=== PATIENT | male | born 1970 | race Caucasian/White ===

== ENCOUNTER 2023-10-21 15:30 | Emergency (ER) | payer BC ==
[~2023-10-21 15:30] MED LIST: Iopamidol 300 61% 100 ML VIAL FS ONE
[2023-10-21] MEDS ORDERED: Morphine 4 MG/ML VIAL ONE (16:25)
[2023-10-21] MEDS ORDERED: Ondansetron PF 4 MG/2 ML Vial ONE ×2 (16:25→17:37)
[2023-10-21 16:32] LABS: #Basophils 0.02 10x3/uL (0.0-0.2); #Eosinphils 0.18 10x3/uL (0.0-0.5); #Neutrophils 5.89 10x3/uL (1.5-8.4); %Basophils 0.3 % (0.0-2.0); %Eosinophils 2.7 % (0.0-6.0); %Monocytes 4.4 % (0.0-10.0); %Neutrophils 87.2 % (40.0-75.0); Mean Corpuscular HGB CONC 34.4 g/dL (32.0-36.0); Mean Corpuscular Hemoglobin 33.8 pg (27.0-33.0); Mean Corpuscular Volume 98.5 fL (81.2-95.1); Mean Platelet Volume 10.4 fL (7.4-10.4); Platelet Count 188 10x3/uL (150-450); Red Blood Cell (RBC) Count 3.25 10x6/uL (4.32-5.72); White Blood Cell (WBC) Count 6.8 10x3/uL (3.5-10.5)
[2023-10-21 16:52] LABS: Bilirubin Neg (Negative); Blood, Urine 10 (Negative); Glucose, Urine (Dipstick) 100 mg/dL (Negative); Ketone, Urine 15 mg/dL (Negative); Leukocyte Negative (Negative); Nitrite Negative (Negative); Protein, Urine (Dipstick) 100 mg/dl (Neg-Trace); Specific Gravity, Urine 1.015 (1.005-1.030); Urobilinogen Normal mg/dL (Less than 2)
[2023-10-21 16:53] LABS: ALT (SGPT) 26 U/L (8-55); AST (SGOT) 29 U/L (5-34); Alkaline Phosphatase 110 U/L (40-110); Anion Gap 20 mmol/L (10-20); BUN (Urea Nitrogen) 35 mg/dL (8.4-25.7); Bilirubin, Total 0.5 mg/dL (0.2-1.2); Calc. Creatinine Clearance 0 mL/min (70-130); Calcium 10.2 mg/dL (7.8-10.44); Carbon Dioxide 25 mmol/L (22-29); Chloride 98 mmol/L (98-107); Estimated GFR 7; Globulin 3.7 g/dL (2.4-3.5); Glucose 82 mg/dL (70-105); Lipase 104 U/L (8-78); Potassium 5.2 mmol/L (3.5-5.1); Protein, Total 7.7 g/dL (6.0-8.3); Sodium 138 mmol/L (136-145)
[2023-10-21 16:54] LABS: Clarity Clear (Clear)
[2023-10-21 17:22] LABS: CAUTI Indications for Culture Pelvic or flank pain; RBC/HPF 0-3 HPF (0-3); Squamous Epithelial 0-3 HPF (0-3); WBC/HPF 0-3 HPF (0-3)
[2023-10-21 17:23] LABS: Bacteria/HPF Rare-Few HPF (None Seen)
[2023-10-21 17:24] LABS: Transitional Epithelial 0-3 HPF (None Seen)
[2023-10-21 17:25] LABS: Urine Culture Reflex No No
[2023-10-21] MEDS ORDERED: Lorazepam 2 MG/ML VIAL ONE (17:36)
[2023-10-21] MEDS ORDERED: EPINEPHrine 1 MG/ML VIAL ONE (18:06)
[2023-10-21 18:23] LABS: Anion Gap 21 mmol/L (10-20); BUN (Urea Nitrogen) 35 mg/dL (8.4-25.7); Calc. Creatinine Clearance 0 mL/min (70-130); Calcium 9.6 mg/dL (7.8-10.44); Carbon Dioxide 21 mmol/L (22-29); Chloride 99 mmol/L (98-107); Estimated GFR 7; Glucose 134 mg/dL (70-105); Potassium 4.7 mmol/L (3.5-5.1); Sodium 136 mmol/L (136-145)
[2023-10-21] MEDS ORDERED: Azithromycin 500 MG VIAL ONE (22:21)
[2023-10-21 23:38] LABS: Actual Bicarbonate (HCO3a) 26.2 mEq/L (22-28); Analyzer IN Cardio CS ER; Base Excess (BEa) 1.4 mEq/L (-2.0 to +3.0); CO2 Tension 42.2 mmHg (35.0-45.0); Calcium, Ionized (arterial) 1.18 mmol/L (1.12-1.30); Carboxyhemoglobin (COHb) 0.3 gm% (0.0-3.0); Hematocrit-ABG 34 % (42.0-52.0); Hemoglobin (Hb) 11.7 g/dL (14.0-18.0); O2 Tension (PaO2), arterial 76.3 mmHg (80.0-100.0); Puncture Site RRA; pH, Arterial 7.411 (7.35-7.45)
== END 2023-10-22 00:45 | disposition short-term general hospital (02) ==
LOC: CSHERS 15:30
DX: J90 Pleural effusion, not elsewhere classified (principal); R11.2 Nausea with vomiting, unspecified; I50.9 Heart failure, unspecified; I13.2 Hypertensive heart and chronic kidney disease with heart failure and with stage 5 chronic kidney disease, or end stage renal disease; N18.6 End stage renal disease; Z99.2 Dependence on renal dialysis
CPT/HCPCS: 36415; 36600; 70450; 74177; 80053; 81001; 82805; 83690; 85025; 96372; 96374; 96375; 96376; J0171; J0456; J2060; J2270; J2405; Q9967